=== PATIENT | female | born 1980 | race Caucasian/White ===

== ENCOUNTER 2019-01-27 21:39 | Emergency (ER) | payer BC, MEDICAID ==
--- NOTE | 2019-01-27 22:36 | EDM.PDOC ---
ED HPI GENERAL MEDICAL PROBLEM - General Chief Complaint: Upper Extremity Injury/Pain Stated Complaint: LT ELBOW POSS BROKEN Time Seen by Provider: 01/27/19 21:58 Source of Information: Reports: Patient, Family History Limitations: Reports: Physical Impairment - History of Present Illness INITIAL COMMENTS - FREE TEXT/NARRATIVE: 38 y.o.w.f came to ED because of a swollen and painful left elbow after a fall onto her left elbow at home. Pt has no pain at rest. She denies other injury. No N/V/D no dizziness, No SOB or chest pain BP 99/56 RR 16 Pulse ox 98% on RA Temp 36.8 Pulse 87 Onset Date: 01/27/19 Onset Time: 19:00 Duration: Hour(s):, Intermittent Location: Reports: Upper Extremity, Left (elbow) Quality: Reports: Ache, Burning, Dull, Pressure, Throbbing Severity: Moderate Improves with: Reports: Rest Worsens with: Reports: Movement Context: Reports: Trauma (fell onto her left elbow) Associated Symptoms: Reports: No Other Symptoms left elbow Pain Score (Numeric/FACES): 8 - Related Data Allergies Allergy/AdvReac Type Severity Reaction Status Date / Time No Known Allergies Allergy Verified 01/27/19 21:56 Home Meds: Home Meds Norethindrone-Ethinyl Estrad [Dasetta 1-35-28 Tablet] 1 tab PO DAILY 01/27/19 [ History] Review of Systems - Review of Systems Review Of Systems: See Below Constitutional: Reports: No Symptoms Eyes: Reports: No Symptoms Ears: Reports: No Symptoms Nose: Reports: No Symptoms Mouth/Throat: Reports: No Symptoms Respiratory: Reports: No Symptoms Cardiovascular: Reports: No Symptoms GI/Abdominal: Reports: No Symptoms Genitourinary: Reports: No Symptoms Musculoskeletal: Reports: Joint Pain (left elbow) Skin: Reports: No Symptoms Neurological: Reports: No Symptoms Psychiatric: Reports: No Symptoms ED EXAM, GENERAL - Physical Exam Exam: See Below Exam Limited By: No Limitations General Appearance: Alert, WD/WN, No Apparent Distress Eye Exam: Bilateral Eye: Normal Inspection Ears: Normal External Exam Ear Exam: Bilateral Ear: Auricle Normal Nose: Normal Inspection, Normal Mucosa Throat/Mouth: Normal Inspection, Normal Lips, Normal Voice, No Airway Compromise Head: Atraumatic, Normocephalic Neck: Normal Inspection, Supple, Non-Tender, Full Range of Motion Respiratory/Chest: No Respiratory Distress, Lungs Clear, Normal Breath Sounds, No Accessory Muscle Use Cardiovascular: Normal Peripheral Pulses, Regular Rate, Rhythm, No Edema, No Gallop Peripheral Pulses: 1+: Radial (R) GI/Abdominal: Normal Bowel Sounds, Soft, Non-Tender, No Abnormal Bruit, No Mass , Pelvis Stable (Female) Exam: Deferred Rectal (Female) Exam: Deferred Back Exam: Normal Inspection, Full Range of Motion Extremities: Arm Pain, Limited Range of Motion (left elbow due to pain) Neurological: Alert, Oriented, CN II-XII Intact, Normal Cognition, Normal Gait Psychiatric: Normal Affect, Normal Mood Skin Exam: Warm, Dry, Intact, Normal Color, No Rash Lymphatic: No Adenopathy ED TRAUMA EXTREMITY PROCEDURES - Splinting Left Upper Extremity Splint Site: left elbow Pre-Procedure NV Status: Normal Post-Procedure NV Status: Normal Splint Material: Fiberglass Splint Design: Posterior Applied & Form Fitted By: Provider Provider Post-Splint Application NV Check: NV Status Normal Complications: No Course - Vital Signs Text/Narrative:: 38 y.o.w.f came to te ED because of a swollen and painful left elbow after a fall onto her left elbow at home. Pt has no pain at rest. She denies other injury. No N/V/D no dizziness, No SOB or chest pain BP 99/56 RR 16 Pulse ox 98% on RA Temp 36.8 Pulse 87 PE: WNWD W F with left elbow pain and swelling Imaging: Left elbow: Capitellar Fx with volar displacement as well as fracture of the volar aspect of the radial head with distal displacement and associated large elbow effusion Procedure: Posterior splint left elbow, arm sling Impression: Capitellar Fx with volar displacement as well as fracture of the volar aspect of the radial head with distal displacement and associated large elbow effusion Tx: ICE. Pt refused pain meds. 10.41 pm Consultation: Dr. Akins, Ortho: He can see the pt at 11 am on 2018 Reexam: Pt was stable in the ED Plan: D/C with instructions Last Recorded V/S: Last Vital Signs Temp 36.1 C 01/27/19 23:30 Pulse 78 01/27/19 23:30 Resp 17 01/27/19 23:30 BP 144/89 H 01/27/19 23:30 Pulse Ox 100 01/27/19 23:30 - Orders/Labs/Meds Orders: Active Orders 24 hr Category Date Time Status Elbow 2V Lt [CR] Stat Exams 01/27/19 22:19 Taken Departure - Departure Time of Disposition: 23:23 Disposition: Home, Self-Care 01 Condition: Good Clinical Impression: Elbow fracture, left - Discharge Information Instructions: Cast or Splint Care, Adult, [id number], Radial Head Fracture, [id number] Referrals: Jeremy Rivera MD [Primary Care Provider] - Eloy Akins DO [Physician] - Forms: ED Department Discharge, ED Return to Work/School Form Additional Instructions: Please see Dr. Akins at 11 am tomorrow in his clinic. ICE, Rest and elevation.Motrin for pain. Please come back to the ED eif your symptoms get acutely worse. - My Orders Last 24 Hours: My Active Orders 01/27/19 22:19 Elbow 2V Lt [CR] Stat - Assessment/Plan Last 24 Hours: My Active Orders 01/27/19 22:19 Elbow 2V Lt [CR] Stat
== END 2019-01-27 23:33 | disposition home or self-care (01) ==
LOC: FB.ED 21:39
DX: S52.122A Displaced fracture of head of left radius, initial encounter for closed fracture (principal); W18.39XA Other fall on same level, initial encounter; Y92.009 Unspecified place in unspecified non-institutional (private) residence as the place of occurrence of the external cause
CPT/HCPCS: 29105; 73070-LT; 99283-25

== ENCOUNTER 2019-01-31 07:18 | Day surgery (SDC) | payer BC ==
[2019-01-31] MEDS ORDERED: Lidocaine 2% 100 MG/5 ML Syringe IVPUSH ONE (07:19)
[2019-01-31] MEDS ORDERED: Propofol 200 MG/20 ML SDV IV ONE (07:19)
[2019-01-31] MEDS ORDERED: Ropivacaine 0.5% 5 MG/ML 20 ML SDV INJECT ONE (07:19)
[2019-01-31] MEDS ORDERED: Lactated Ringers 1,000 ML IV ONE (07:19)
[2019-01-31] MEDS ORDERED: Lidocaine 1% PF 2 ML SDV INJECT ONE (07:19)
[2019-01-31] MEDS ORDERED: fentaNYL 100 MCG/2 ML SDV IV ONE (07:19)
[2019-01-31] MEDS ORDERED: Ondansetron 4 MG/2 ML SDV IVPUSH ONE ×2 (07:19→12:05)
[2019-01-31] MEDS ORDERED: Midazolam 1 MG/ML 2 ML SDV IV ONE (07:19)
[2019-01-31] MEDS ORDERED: Dexamethasone 4 MG/ML SDV IVPUSH ONE (07:19)
[2019-01-31] MEDS ORDERED: Acetaminophen 500 MG Tab PO ONE (07:30)
[2019-01-31] MEDS ORDERED: Lactated Ringers 1,000 ML IV SCH (07:30)
[2019-01-31] MEDS ORDERED: Sodium Chloride 0.9% 10 ML Syringe FLUSH PRN (07:30)
[2019-01-31] MEDS ORDERED: ceFAZolin 2 GM in Premix Bag 1 BAG IV ONE (09:15)
[2019-01-31] MEDS ORDERED: Bupivacaine 0.5%/EPINEPHrine 1:200,000 50 ML MDV INJECT ONE (09:27)
--- NOTE | 2019-01-31 09:43 | PCM.SN ---
- Free Text/Narrative Note: ANESTHESIA ACUTE PAIN SERVICE Date: 01/31/2019 Time: 0833 to 0857 Preoperative Dx: Left Olecranon Fx Postoperative Rx: ORIF Left Olecranon Fx The surgeon and Patient are requesting a Peripheral Nerve Block for Postoperative Pain Control. Procedure: Left Supraclavicular Nerve Block with Ultrasound [U/S] Guidance. Risks and Benefits discussed with the patient including block failure or pneumothorax. Her questions were all answered and a consent was obtained. She was then taken to PACU for the procedure. Monitors: NIBP, Heart Rate, SpO2 and Nasal Cannula O2 at 2 L/M. Sedation: Versed 2 mg's and Fentanyl 50 mcg's IV given. She remained alert and orientated throughout this procedure. She was placed supine with the HOB at 45 degrees and her head turned to the right. A preprocedure U/S scan was done locating the Left Subclavian Artery, Brachial Plexus and 1st Rib v.s. Pleura of the lung. The insertion site area was widely prepped with a Chlora-Prep swab X 1 and Allowed to dry. Using aseptic technique, I then infiltrated the needle insertion site with 1 ml of 1% Lidocaine plain. Next under direct U/S visualization I inserted a 22 Ga. 2 In. reBouncesuplex Ultra 360 Insulated Echogenic Needle advancing it slowly to the " eight ball pocket" without complications. After a negative aspiration for blood /air, a total of 15 ml's of .5% Naropin in divided doses was given. The Left Subclavian Artery was lifted off the 1st rib and including the Brachial Plexus. I then redirected the needle under direct U/S visualization to the top of the plexus and slowly injected a total of 15 ml's of .5% Naropin in divided doses and negative aspiration for blood. There was a nice spread of the Naropin around the plexus. She tolerated this procedure very well and no local toxicity, SOB or other complications are noted. Documentation: Please see the PACS system in Radiology for images taken of the procedure. Thank you for allowing us to provide this service to your patient. Nato Vergara CRNA, [facility]
--- NOTE | 2019-01-31 10:54 | PCM.OPNOTE ---
- General Post-Op/Procedure Note Date of Surgery/Procedure: 01/31/19 Pre Op Diagnosis: left capitellum fracture Post-Op Diagnosis: Same plus LUCL ligament avulsion Anesthesia Technique: General LMA, Regional Block Primary Surgeon: Eloy Akins Dock Operator: Eloise Nieves EBL in mLs: 25 Complications: none Condition: Good
--- NOTE | 2019-01-31 11:30 | US ---
INDICATION: Left subclavian nerve block. ULTRASOUND RFA GUIDANCE: Ultrasonic guidance was utilized for subclavian nerve block. Multiple ultrasonic images were obtained 01/31/19. [facility]
--- NOTE | 2019-01-31 11:51 | CR ---
INDICATION: Left arm fracture, ORIF. C-ARM IN OR, LESS THAN 1 HOUR: C-arm fluoroscopy time was 0.1 minutes. Multiple C-arm images, numbering 6, were obtained during the procedure and revealed an appearance of good position and alignment of the comminuted distal humeral fracture fragments fixed in place by 6 screws. A definite complicating process was not identified. MTDD
[2019-01-31] MEDS ORDERED: hydrOXYzine HCl 50 MG/ML SDV IM ONE (12:06)
--- NOTE | 2019-01-31 17:12 | OR ---
DATE OF OPERATION: 01/31/2019 SURGEON: Eloy Akins DO PREOPERATIVE DIAGNOSIS: Left elbow capitellum fracture, closed. POSTOPERATIVE DIAGNOSIS: Left elbow capitellum fracture, closed plus lateral ulnar collateral ligament avulsion. ELECTRON BEAM WELDING MACHINE OPERATOR: Eloise Nieves NP. Nurse practitioner, Eloise Nieves NP, played an essential role in assisting in this case, helping to position the patient, retract structures as needed, as well as suturing and cutting sutures as indicated. Her presence improved patient's safety and decreased operative time. ANESTHESIA: General LMA. FLUID: Lactated Ringer solution. ESTIMATED BLOOD LOSS: 25 mL. COMPLICATIONS: None. SPECIMEN: None. DISCHARGE DISPOSITION: Stable to PACU. INSTRUMENTATION: Guillermo headless screws and Iconix anchor. HISTORY AND INDICATION FOR THE PROCEDURE: The patient was seen preoperatively in the clinic. She had come into the emergency department after a fall. She was found to have a left capitellum fracture which was closed. Plain films and preoperative CT confirmed the above-mentioned diagnosis. Risks and benefits of the procedure were explained to the patient. Informed consent was obtained. DETAILS OF PROCEDURE: The patient was seen preoperatively by myself and the Anesthesia staff in the preoperative holding area where the operative site was marked. She was brought to the operative suite by the Anesthesia staff where general anesthesia was administered. All extremities were found to be well padded. A well-padded tourniquet was placed on the left arm. I did a pre-scrub on the arm with PCMX. The left upper extremity was then prepped and draped in a sterile manner. Time-out was called identifying the correct patient, the correct procedure, the correct site, and the antibiotics had been within appropriate period of time. An incision was made over the lateral column extending over the proximal radius. This was carried down through the subcutaneous tissue with Bovie electrocautery for hemostasis. Please note that I also performed a reduction maneuver prior to the incision. I made an incision coming down over the lateral column through the capsule and exposing the proximal radial head. The hand was kept in pronation to avoid injury to the posterior interosseous nerve. The fracture fragments were evident. The lateral condyle and epicondyle were in one fragment and then the capitellum was in another fragment. I could see that there was a crack in the proximal radial head, but I thought that this was too small to place a screw through and it was in good position, so I left the radial head as it is. I removed my lateral condyle and epicondyle fragment. I had noted that the lateral ulnar collateral ligament was avulsed off its attachment in the midpoint of the capitellum laterally through the condyle. I used copious irrigation to remove any extra clot and then reapproximated as good as possible and then placed headless screws through that fragment. I then removed the capitellum fragment, washed that out, and then placed that back in. I held it with bone tenaculums and then placed several screws through that fragment to hold it, and I was able to avoid the articular cartilage distally as I placed the K-wires from posterior to anterior position and then if they were from anterior to posterior, I was on the edge of the cartilage, so outside of the weightbearing articulating surface. After this had been accomplished, I then copiously irrigated with Betadine infused irrigation. There was a lot of gapping obviously without the lateral ulnar collateral ligament intact. I then placed an Iconix 2.3 mm anchor after drilling with the 2.0 aerial applicator pilot hole. I then reattached this to the capsule where I thought were the remaining attachments. This was done by doing this in 2 strands as you would do with the reconstruction procedure just distal to the olecranon by approximately 3 to 4 cm and then the second one distal and another 1 to 2 cm distal to that, but this was actually done through the capsular attachments and this was in approximation, so after using a free needle to place my sutures where I believe that they would have the best attachment, I then ranged the elbow and was stable. This appeared to be at the appropriate position. The anchor appeared to be in the appropriate position for the center. I then tied these and then copiously irrigated with Betadine infused irrigation and then closed the capsule as well as the lateral collateral ligament complex with 2-0 Vicryl [id number] sutures and then I closed the capsule with a running 2-0 Vicryl in interlocking fashion followed by subcutaneous 2-0 Vicryl stitches followed by 3-0 Prolene horizontal mattresses. We then placed a sterile dressing with Betadine-soaked Adaptic and then placed her into a posterior splint at 90 degrees in neutral position. The patient was then allowed to awaken from general anesthesia and taken to the PACU in stable condition. /[id number] JOSH/FILOMENA
== END 2019-01-31 14:07 | disposition home or self-care (01) ==
LOC: FB.SDS 07:18
PROVIDERS: ATTEND Orthopaedic Surgery
DX: S52.022A Displaced fracture of olecranon process without intraarticular extension of left ulna, initial encounter for closed fracture (principal); S53.442A Ulnar collateral ligament sprain of left elbow, initial encounter
CPT/HCPCS: 24685; 76000; 81025; A9270; J0690; J1100; J2001; J2250; J2405; J2704; J2795; J3010; J3410; J3490; J7120

== ENCOUNTER 2019-02-01 22:13 | Emergency (ER) | payer BC ==
--- NOTE | 2019-02-01 23:56 | EDM.PDOC ---
ED HPI GENERAL MEDICAL PROBLEM - General Chief Complaint: Upper Extremity Injury/Pain Stated Complaint: WOUND INFECTED Time Seen by Provider: 02/01/19 23:25 Source of Information: Reports: Patient History Limitations: Reports: No Limitations - History of Present Illness INITIAL COMMENTS - FREE TEXT/NARRATIVE: had surgery for elbow reconstruction on Sunday. Today started having weeping fluid through splint and wrap. Hand also very swollen. Minimal pain -rates about 4/10. No fever, chills, sweats. No other symptoms or concerns. No numbness or tingling in hand; no cough, shortness of breath, chest pain. No nausea. 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: Musculoskeletal History: Reports: Other (See Below) Other Musculoskeletal History: broken L elbow - Past Surgical History GI Surgical History: Reports: Appendectomy Musculoskeletal Surgical History: Reports: Other (See Below) Other Musculoskeletal Surgeries/Procedures:: Pins placed in left elbow Social & Family History - Family History Family Medical History: Noncontributory - Tobacco Use Smoking Status *Q: Never Smoker - Caffeine Use Caffeine Use: Reports: Soda - Recreational Drug Use Recreational Drug Use: No - Living Situation & Occupation Living situation: Reports: Review of Systems - Review of Systems Review Of Systems: ROS reveals no pertinent complaints other than HPI. ED EXAM, GENERAL - Physical Exam Exam: See Below Free Text/Narrative:: Gen.: Alert, pleasant no distress. Peripheral pulses +2 with a radial pulse bilaterally, and she has full range of motion of her hand, no sensation deficits. There is significant edema noted in the left hand and a postoperative exterior splint is in place. Lungs are clear, heart regular the posterior splint was removed and wound exposed down to the gauze. There was no surrounding erythema, significant joint swelling, or pus seen. The swelling in the patient's hand decreased significantly after removal of the juan miguel wrap. Course - Vital Signs Text/Narrative:: no signs of systemic infection or DVT; no fevers. Underlying wound appears clean. Sterile gloves were used and op site was exposed to level of the gauze, but I did not remove the gauze itself as at that point in could clearly be seen that there was no erythema or pus around the wound. The swelling and the patient 's and decreased significantly once Juan Miguel wrap was off. We reapplied soft gauze in the area of the posterior splint and then were able to put the same posterior splint back on, as it was clean. An Juan Miguel wrap was reapplied over the top. Recommended that she needs to because of change in swelling, could tighten or loosen the Juan Miguel wrap slightly tomorrow if needed, but should not remove splint again until instructed by surgeon or per post-op instructions. Sling re-applied. Follow-up with surgeon on Sunday in the office , they will call in the a.m. Last Recorded V/S: Last Vital Signs Temp 36.6 C 02/01/19 23:50 Pulse 75 02/01/19 23:50 Resp 18 02/01/19 23:50 BP 155/103 H 02/01/19 23:50 Pulse Ox 100 02/01/19 23:50 Departure - Departure Time of Disposition: 23:54 Disposition: Home, Self-Care 01 Condition: Good Clinical Impression: Hx of elbow surgery - Discharge Information *PRESCRIPTION DRUG MONITORING PROGRAM REVIEWED*: Not Applicable *COPY OF PRESCRIPTION DRUG MONITORING REPORT IN PATIENT JULIANA: Not Applicable Referrals: Jeremy Rivera MD [Primary Care Provider] - Forms: ED Department Discharge Additional Instructions: call orthopaedic office on Sunday [phone] hotel front desk agent [phone] (if needed) if need to can adjust juan miguel wrap slightly tighter, being careful not to move elbow , or allow splint to move. keep elevated ice as needed
== END 2019-02-01 23:59 | disposition home or self-care (01) ==
LOC: FB.ED 22:13
DX: M25.522 Pain in left elbow (principal); Z98.890 Other specified postprocedural states; Z79.899 Other long term (current) drug therapy
CPT/HCPCS: 99283